=== PATIENT | male | born 1975 | race Caucasian/White ===

== ENCOUNTER 2023-08-27 01:46 | Emergency (ER) | payer BC, SELFPAY ==
[2023-08-27] VITALS (67 sets, daily range): BP systolic 99–186; BP diastolic 79–155; PULSE 114–144; RESP 14–50; TEMP 36.6–38.1; O2SAT 92–100
--- NOTE | ~2023-08-27 | CT_ITS ---
Non-contrast Head CT History: Altered mental status Technique: Axial non-contrast imaging of the brain was performed. Dose reduction technique was used on this scan by utilizing automated exposure control and iterative reconstruction technique. The dose -length product (DLP) was 681.00 mGy-cm. Findings: There is no evidence of intracranial hemorrhage, mass lesion, or acute infarct. Brain par enchyma appears normal. The ventricles and subarachnoid spaces are normal in size. The calvarium ap pears normal. The visualized paranasal sinuses and mastoid air cells are clear. Impression: No significant abnormality seen. Reviewed, dictated and finalized at location . REPAIR SHOP MANAGER Impression: No significant abnormality seen.
--- NOTE | ~2023-08-27 | XR_ITS ---
Portable chest x-ray Comparison: 08/27/2023 at 2:04 AM Clinical History: Tube placement Findings: Endotracheal tube, NG tube, and right-sided subclavian line are in satisfactory positions. Possible mild right basilar haziness. Left lung clear. No pneumothorax. Cardiomediastinal silhouett e is stable. Bones and soft tissues are unremarkable. Impression: Support tubes, as above. Possible mild right basilar haziness, nonspecific. Reviewed, dictated and finalized at location M. OM DRESSMAKER Impression: Support tubes, as above. Possible mild right basilar haziness, nonspecific.
--- NOTE | ~2023-08-27 | XR_ITS ---
Portable chest x-ray Comparison: None Clinical History: Intubation Findings: Endotracheal tube and NG tube are in satisfactory positions. Lungs are essentially clear. Cardiomediastinal silhouette is stable. Bones and soft tissues are unremarkable. Impression: Support tubes, as above. Clear lungs. Reviewed, dictated and finalized at location M. [employer] FITNESS INSTRUCTOR Impression: Support tubes, as above. Clear lungs.
--- NOTE | ~2023-08-27 | CT_ITS ---
Clinical Indication: Altered mental status CT Scan of the Chest, Abdomen, and Pelvis with Contrast: Technique: Contiguous sections were acquired throughout the chest, abdomen, and pelvis after intraven ous administration of 100 cc of Omnipaque 350. Dose reduction technique was used on this scan by robinson day automated exposure control and iterative reconstruction technique. The dose-length product (DL P) was 509.12 mGy-cm. Findings: There is no evidence of any significant mediastinal, hilar or axillary lymphadenopathy. The mediastin al soft tissues and vascular structures appear normal. There is no evidence of pleural or pericardial effusion. There are probable mild tree-in-bud opacities posteriorly at the lung bases. There is mild bronchiole ctasis and probable chronic scarring or atelectasis in the right middle lobe. The liver, spleen, pancreas, adrenals and kidneys are within normal limits. Cholecystectomy clips are present. No evidence of aortic aneurysm. No lymphadenopathy. There is large amount of stool at the rectum and sigmoid colon, compatible with fecal impaction/const ipation. The stomach and proximal duodenum are distended and fluid-filled Urinary bladder is collapsed around a Ndiaye catheter. No pelvic mass evident. No ascites Impression: Findings suggestive of possible acute on chronic small airways infectious process, as noted above. As piration is a potential consideration. Fecal infection/constipation. Fluid distended stomach and proximal duodenum. This is of uncertain etiology/significance. Patient is relatively cachectic, and SMA syndrome is a potential consideration. Reviewed, dictated and finalized at [facility]. R DRIER Impression: Findings suggestive of possible acute on chronic small airways infectious proce ss, as noted above. Aspiration is a potential consideration. Fecal infection/constipation. Fluid distended stomach and proximal duodenum. This is of uncertain etiology/si gnificance. Patient is relatively cachectic, and SMA syndrome is a potential co nsideration.
--- NOTE | ~2023-08-27 | XR_ITS ---
Supine portable view of the abdomen Clinical history: NG tube placement Findings: NG tube is in satisfactory position. Dilated small bowel loops are present, compatible with small bowel obstruction. No definite free air No abnormal mass lesion or calcification is seen. Osse ous structures are intact. Impression: NG tube in satisfactory position. Small bowel obstruction. Reviewed, dictated and finalized at location . L STRUCTURAL DESIGNER Impression: NG tube in satisfactory position. Small bowel obstruction.
--- NOTE | 2023-08-27 02:01 | ECG_ITS ---
Measurements Intervals [place] Rate: 150 P: 85 LA: 108 QRS: 62 QRSD: 102 T: 86 QT: 324 QTc: 513 Interpretive Statements SINUS TACHYCARDIA WITH SHORT LA INTERVAL WITH OCCASIONAL VENTRICULAR PREMATURE COMPLEXES, POSSIBLE ATRIAL FLUTTER NONSPECIFIC ST & T-WAVE ABNORMALITY ABNORMAL RHYTHM ECG NO PREVIOUS ECG AVAILABLE FOR COMPARISON Electronically Signed On 08-27-2023 15:12:42 LUG LOADER by Aquilino Farias M.D.
[2023-08-27 02:05] LABS: Glucose Point of Care 178 mg/dl (65-105)
[2023-08-27] MEDS: PROPOFOL IV EMULSION 100 ML 1.86 MG IV CONT (02:05)
--- NOTE | 2023-08-27 02:14 | PC.NURSE ---
Addendum entered by Neel May RN 08/27/23 03:19: 1mg dilauded* VORB EDp Dr. Colmenares. Original Note: 0142 - pt arrived to ED via [facility] to rm 2. EDP at bedside 0147- EDP Dr. Colmenares VORB 20mg etomidate and 100mg rocuronium. 175/116, RR50, 92% RA, HR 144 0151 - BVM and suction set up. crash cart at bedside. RT and EDP at bedside. 20mg etomidate administered and flushed by CB Perez via IV in L FA. 172/124, RR22, 99% BVM, HR 142 0152 - 100mg Rocuronium administered and flushed by CB Perez via IV in L FA. pt being bagged via BVM by RT. 0155 - ET tube placed. bilateral breath sounds. equal rise and fall of chest. stat bedside xray ordered. 24@lip. 0156 - 4mg ativan, 4mg dilauded, propofol drip sedation VORB EDP Dr. Colmenares OG placed by CB Bauer. 0158 - ativan and dilauded admin by CB Perez. 172/135, RR15, 98% vent, HR 139 0204 - propofol sedation started by CB Cummings. 5mcg/min IV L FA.
--- NOTE | 2023-08-27 02:23 | ED.GENADULT ---
HPI - General Adult General Chief complaint: Seizure Stated complaint: seizure Time Seen by Provider: 08/27/23 02:08 History of Present Illness HPI narrative: This is a 47-year-old male brought from the nursing home for seizure-like activity. Patient was found having generalized shaking and foaming at the mouth. Respiratory rate in the 50-60s. Vomitus in his mouth. patient is a known drug user and suspected etoh user. His female director strategy visited him 1 day ago. No other information available. Related Data Allergies Allergy/AdvReac Type Severity Reaction Status Date / Time Unable to Assess Allergy Verified 08/27/23 07:48 Exam Narrative: APPEARANCE: Patient is cool clammy and shaking, vomit on his mouth Head: small lacerations over his left and right eyebrow some EYES: pupils 4 mm, reactive NOSE: Atraumatic NECK: Trachea midline RESPIRATORY: tachypneic at 50-60 breaths per minute. CARDIOVASCULAR: Tachycardic at 140-150 ABDOMINAL: soft MUSCULOSKELETAl: No obvious deformities NEURO: actively shaking, nonresponsive SKIN:: cool clammy PSYCHIATRIC: non-responsive Course Vital Signs Vital signs: Vital Signs Temperature 97.9 F 08/27/23 01:42 Pulse Rate 144 H 08/27/23 01:42 Respiratory Rate 50 H 08/27/23 01:42 Blood Pressure 175/116 H 08/27/23 01:42 Pulse Oximetry 92 08/27/23 01:42 Oxygen Delivery Room Air 08/27/23 01:42 Temperature 100.2 F H 08/27/23 10:04 Pulse Rate 123 H 08/27/23 10:28 Respiratory Rate 28 H 08/27/23 10:28 Blood Pressure 113/91 H 08/27/23 09:45 Pulse Oximetry 100 08/27/23 10:04 Oxygen Delivery Mechanical Ventilation 08/27/23 09:00 Fraction of Inspired Oxygen 40 08/27/23 09:00 Procedures Central Line Placement Right SC: Central Line Date: 08/27/23 Performed Emergently - Given emergent patient condition, temporal constraints may have precluded informed consent.: Yes Time Out Performed: Yes Patient Placed on Monitor/Pulse Ox: Yes Max. Sterile Barrier Technique: Caps, large sterile sheet and hand hygiene Central Line Prep: 2% chlorhexidine scrub and sterile drapes applied Technique: seldinger Central Line Lumen Inserted: triple Post Procedure: sutured in place, good blood return, all ports aspirated, flushed, capped and sterile dressing applied Post Procedure X-Ray: tip of catheter in good position and no pneumothorax seen Patient Tolerated Procedure: well Complications: none EJ/Peripheral Line Neck R: EJ/Peripheral Line Date: 08/27/23 Skin Cleansed in Sterile Fashion: Yes Size (gauge): 18 IV Secured and Dressing Applied: Yes Intubation Intubation #1: Intubation Date: 08/27/23 Time out performed: Yes sedative: Etomidate Mg Given: 20 paralytic: Rocuronium Mg Given: 100 Laryngoscope: Janae (3) Tube Size (cm): 7.5 Method of Intubation: orotracheal Number of Attempts: 1 Tube Secured Depth (cm): 23 Tube Placement Confirmation: visualized tube passing through cords and equal breath sounds bilaterally Patient Tolerated Procedure: well Intubation Complications: none Medical Decision Making MDM Narrative Medical decision making narrative: -Course: 39-year-old male presenting from [id number] hrs after admission in status epilepticus. patient was intubated placed on propofol fall loaded with Ativan and phenobarbital for suspected alcohol withdrawal. Multiple laboratory abnormalities as noted below. Vital signs improved with benzos and phenobarbital. We do not have continuous EEG at our facility the patient will be transferred to an outside hospital. -DDX includes but is not limited to: Alcohol withdrawal, sympathomimetic drug overdose, Drug packing/ stuffing,status epilepticus, CVA, -Co-morbidities complicating care: suspected drug user, suspected alcohol use disorde
[2023-08-27 02:30] LABS: Basophils Absolute Auto 0.1 K/mm3 (0.0-0.1); Basophils Percent Auto 0.2 % (0.2-1.2); Hematocrit 36.8 % (42.0-52.0); Immature Granulocyte Absolute 0.12 K/mm3 (0.00-0.031); Immature Granulocyte Percent A 0.5 % (0-0.5); Lymphocytes Absolute Auto 1.43 K/mm3 (0.9-3.2); Lymphocytes Percent Auto 5.8 % (18.3-44.2); Mean Corpuscular HGB Conc 32.6 g/dl (32-36); Mean Corpuscular Hemoglobin 26.8 pg (26-34); Mean Corpuscular Volume 82.1 fl (80-100); Mean Platelet Volume 9.5 fl (7.4-10.4); Monocytes Percent Auto 4.2 % (2.6-8.5); Neutrophils Absolute Auto 21.9 K/mm3 (1.3-6.7); Neutrophils Percent Auto 89.3 % (45.5-73.1); Platelet Count Result 507 k/mm3 (150-375); Red Blood Count 4.48 M/mm3 (4.6-6.20); Red Cell Distribution Width 15.9 % (11.5-14.5); White Blood Count 24.5 K/mm3 (4.5-10.0)
[2023-08-27 02:42] LABS: Alanine Aminotransferase 70 U/L (6-50); Albumin Level 4.4 g/dL (3.5-5.1); Alkaline Phosphatase 90 U/L (38-126); Anion Gap 20 mmol/L (8-16); Aspartate Amino Transferase 51 U/L (17-59); Bilirubin,Total 0.6 mg/dL (0.2-1.3); Blood Urea Nitrogen 28 mg/dL (9-20); Calcium 8.9 mg/dL (8.4-10.2); Carbon Dioxide 16 mmol/L (22-30); Chloride 108 mmol/L (98-107); Creatine Kinase 411 U/L (55-170); Estimated CRCL calculation 98 ml/min; Estimated Glomerular Filt Rate > 60; Glucose 184 mg/dL (65-110); INR 1.2; Lipase 69 U/L (23-300); Magnesium 2.2 mg/dL (1.6-2.3); Phosphorus 4.4 mg/dL (2.5-4.5); Prothrombin Time 15.5 Seconds (11.1-14.7); Sodium 144 mmol/L (137-145); Triglycerides 78 mg/dL (<150)
[2023-08-27 02:43] LABS: Partial Thromboplastin Time 25.9 SECONDS (22.3-36.8)
[2023-08-27 02:45] LABS: Lactic Acid Reflex 7.6 mmol/L (0.7-2.0)
[2023-08-27 02:46] LABS: Acetaminophen < 10 ug/mL (10-30); Ethanol < 10 mg/dL (<10); Salicylate < 1.0 mg/dL (2-20)
[2023-08-27 02:50] LABS: Appearance Urine Clear (Clear); Bacteria Urine None Seen /hpf; Bilirubin Urine Negative (Negative); Blood Urine 1+ (Negative); Color Urine Yellow (Yellow); Glucose Urine UA 2+ mg/dL (Negative); Ketones Urine Trace mg/dL (Negative); Leukocyte Esterase Ur Negative LEU/UL (Negative); Need Manual Microscopic Reviewed; Nitrate Urine Negative (Negative); Protein Urine 2+ mg/dL (Negative); RBC Urine 0-2 /hpf (0-2); Squamous Epithelial Cell Urine None seen /hpf (Few); Urobilinogen Urine 0.2 mg/dL (<2.0); WBC Urine 0-5 /hpf
[2023-08-27 02:53] LABS: Add Urine Microscopic? YES
[2023-08-27 02:54] LABS: NT Pro B Type Natriuretic Pept 7010 pg/mL (19.9-100)
[2023-08-27 02:58] LABS: Amphetamine Screen Urine Negative (Negative); Barbiturate Screen Urine Negative (Negative); Benzodiazepines Screen Urine Negative (Negative); Cannabinoid Screen Urine Negative (Negative); Cocaine Screen Urine Negative (Negative); Methadone Screen Urine Negative (Negative); Opiate Screen Urine Negative (Negative); Phencyclidine Screen Urine Negative (Negative)
[2023-08-27 03:09] LABS: Influenza A QL RT-PCR Negative (Negative); Influenza B QL RT-PCR Negative (Negative); RSV RNA, RT-PCR Negative (Negative); SARS-CoV-2 RNA PCR Negative (Negative)
[2023-08-27] MEDS: SODIUM CHLORIDE 0.9% IV 1,000 ML 999 ML IV CONT (03:17)
[2023-08-27] MEDS: HYDROmorphone HCL INJ (*CRX) 1 MG/ML SYR IV PUSH (03:23)
[2023-08-27] MEDS: LORazepam INJ (*CRX) 2 MG/ML VIAL 4 MG IV PUSH ×3 (03:23→09:59)
[2023-08-27] MEDS: SODIUM CHLORIDE 0.9% IV 3,000 ML 999 ML IV CONT (03:23)
[2023-08-27] MEDS: PIPERACILLN/TAZ 3.375GM/NS50ML 3.375 GM/50 ML BAG IVPB (03:26)
[2023-08-27 03:30] LABS: Alveolar/Arterial O2 Gradient 136.4 mmHg; Base Excess ABG -8.2 mEq/l (+/-2.0); Fractional Inspired Oxygen 100 %; HCO3 ABG 21.2 mEq/l (22.0-26.0); Oxygen Content ABG 18.1 %vol (16.0-22.0); Oxygen Saturation ABG 99.8 % (95.0-100.0); Oxyhemoglobin 98.1 % THb (90.0-100.0); PO2 FiO2 Ratio Arterial Blood 5.14 %; Total Hemoglobin 12.1 g/dL (12.0-18.0)
[2023-08-27 03:31] LABS: Estimated CRCL calculation 98 ml/min; Estimated Glomerular Filt Rate > 60
[2023-08-27 03:31] LABS: PCO2 ABG 62.6 mmHg (35.0-45.0); pH ABG 7.148 (7.350-7.450)
[2023-08-27 03:32] LABS: Arterial Blood Gas PEEP 5 cmH2O; Arterial Blood Gas Tidal Volume 400 ml; Arterial Blood Gas Vent Mode CMV; Arterial Blood Gas Ventilator rate 15 /MIN; Device VENTILATOR; Modified Allen's Test Pass; Site Drawn RIGHT RADIAL
[2023-08-27] MEDS: POTASSIUM CHLORIDE INJ 40 MEQ in SODIUM CHLORIDE 0.9% IV 500 ML 130 MEQ IVPB (04:04)
--- NOTE | 2023-08-27 04:22 | PC.NURSE ---
EDP Dr. Colmenares verbalized central line OK TO USE.
[2023-08-27 04:46] LABS: Alveolar/Arterial O2 Gradient 167.2 mmHg; Base Excess ABG -6.2 mEq/l (+/-2.0); Fractional Inspired Oxygen 40 %; HCO3 ABG 17.1 mEq/l (22.0-26.0); Oxygen Content ABG 14.8 %vol (16.0-22.0); Oxygen Saturation ABG 96.9 % (95.0-100.0); Oxyhemoglobin 95.1 % THb (90.0-100.0); PCO2 ABG 27.2 mmHg (35.0-45.0); PO2 ABG 86.7 mmHg (80.0-100.0); PO2 FiO2 Ratio Arterial Blood 2.17 %; pH ABG 7.416 (7.350-7.450)
[2023-08-27 04:47] LABS: Device VENTILATOR; Modified Allen's Test Pass; Site Drawn RIGHT RADIAL
[2023-08-27 04:48] LABS: Arterial Blood Gas PEEP 5 cmH2O; Arterial Blood Gas Tidal Volume 450 ml; Arterial Blood Gas Vent Mode CMV; Arterial Blood Gas Ventilator rate 20 /MIN
[2023-08-27] MEDS: VANCOMYCIN 1,500 MG/NS 500 ML 1,500 MG/500 ML BAG 250 MG IVPB (04:57)
[2023-08-27] MEDS: PHENobarbitaL sodium (*CRX) 130 MG/ML VIAL 500 MG IV PUSH (05:02)
[2023-08-27 05:26] LABS: Reflex Lactic Acid Yes or No Add Lactic
[2023-08-27 05:36] LABS: Lactic Acid Reflex 1.6 mmol/L (0.7-2.0)
[2023-08-27 05:39] LABS: MRSA (PCR) NOT DETECTED (NOT DETECTE)
[2023-08-27] MEDS: PROPOFOL IV EMULSION 100 ML 18.63 MG IV CONT (05:44)
[2023-08-27] MEDS: SODIUM CHLORIDE 0.9% XX (05:45)
[2023-08-27] MEDS: PHENOBARBITAL SODIUM XX (05:45)
--- NOTE | 2023-08-27 05:53 | ECG_ITS ---
Measurements Intervals [place] Rate: 120 P: 63 MS: 120 QRS: 56 QRSD: 89 T: 72 QT: 355 QTc: 503 Interpretive Statements SINUS TACHYCARDIA COMPARED TO ECG 08/27/2023 01:58:05 HEART RATE IS SLOWER NOW Electronically Signed On 08-27-2023 15:13:15 FLORAL ASSISTANT by Aquilino Farias M.D.
--- NOTE | 2023-08-27 06:02 | PC.NURSE ---
Addendum entered by Neel May RN 08/27/23 06:05: Accepting physician changed, updated on xfr form. Original Note: Pt accepted at [facility] ICU. Accepting physician is Dr. Nicholas. No beds available at this time.
[2023-08-27] MEDS: CENTRAL LINE FLUSH 10 ML IV PUSH (07:00)
[2023-08-27] MEDS: LACTATED RINGERS 1,000 ML 150 ML IV CONT (07:36)
[2023-08-27] MEDS: PROPOFOL IV EMULSION 100 ML 50 MG (10:28)
--- NOTE | 2023-08-27 10:33 | PC.NURSE ---
Lashawn Thomas contacted to inform them of pts departure from [facility].
[2023-08-27 10:35] LABS: Triglycerides 168 mg/dL (<150)
== END 2023-08-27 10:26 | disposition short-term general hospital (02) ==
PROVIDERS: Emergency Medicine; Emergency Provider Emergency Medicine
DX: G40.901 Epilepsy, unspecified, not intractable, with status epilepticus (principal); F19.90 Other psychoactive substance use, unspecified, uncomplicated; R91.8 Other nonspecific abnormal finding of lung field; K59.00 Constipation, unspecified; R00.0 Tachycardia, unspecified; R94.31 Abnormal electrocardiogram [ECG] [EKG]
CPT/HCPCS: 31500; 36415; 36556; 36600; 70450; 71260; 74177; 80053; 80307; 81001; 82550; 82805; 82948; 83605; 83690; 83735; 83880; 84100; 84443; 84478; 84484; 85025; 85610; 85730; 87040; 87181; 87637; 87641; 93005; 96361; 96365; 96366; 96367; 96368; 96375; 96376; 99291; C1751; J1170; J1953; J2060; J2543; J2560; J2704; J3370; J3480; J7030; J7040; J7120; Q9967